=== PATIENT | male | born 1985 | race African-American/Black ===

== ENCOUNTER 2017-01-25 02:00 | Emergency (ER) | payer SELFPAY ==
[~2017-01-25] VITALS: Ht 170.2 cm; Wt 77.1 kg
--- NOTE | 2017-01-25 02:10 | NUR ---
To bed 9 a 31 yo male patient bbra from station, patient verbalized "i used some bad drugs". Patient noted with psych history. Alert and responsive. VSS. nondiaphoretic. nad noted. gowned. safety and comfort measures in place. Dr Ferrell at bedside for eval.
[2017-01-25] MEDS ORDERED: OLANZAPINE 5 MG TABLET ONE (02:21)
--- NOTE | 2017-01-25 02:25 | NUR ---
medicated patient as ordered by Dr Ferrell.
[2017-01-25] MEDS ORDERED: OLANZAPINE 5 MG/TAB.RAPDIS PO ONE (02:30)
--- NOTE | 2017-01-25 04:48 | NUR ---
patient is sleeping comfortably at this time. nad noted. vss.
--- NOTE | 2017-01-25 06:23 | NUR ---
Patient discharged in stable condition. Given information about resources for homeless. written and verbal after care instructions given. Patient verbalizes understanding of instruction. Patient discharged with crutches, ambulating and johana well use of crutches. No further complaints.
[2017-01-25 06:26] VITALS: BP 131/84
== END 2017-01-25 06:27 | disposition home or self-care (01) ==
LOC: ER 02:04
DX: F20.9 Schizophrenia, unspecified (principal); F31.9 Bipolar disorder, unspecified; R79.89 Other specified abnormal findings of blood chemistry; F19.10 Other psychoactive substance abuse, uncomplicated; Z91.14 Patient's other noncompliance with medication regimen
CPT/HCPCS: 82962-TC; A4606; Z7610

== ENCOUNTER 2018-12-20 23:32 | Emergency (ER) | payer OTHER ==
[~2018-12-20] VITALS: Ht 170.2 cm; Wt 73.0 kg
[2018-12-21 00:28] VITALS: BP 110/71
--- NOTE | 2018-12-21 01:11 | NUR ---
PATIENT NOT IN THE WAITING ROOM.
--- NOTE | 2018-12-21 02:14 | NUR ---
PATIENT NOT IN THE WAITING ROOM.
--- NOTE | 2018-12-21 02:49 | NUR ---
PATIENT NOT IN THE WAITING ROOM.
== END 2018-12-21 02:50 | disposition left against medical advice (07) ==
LOC: ER 23:36
DX: F20.9 Schizophrenia, unspecified (principal); F31.9 Bipolar disorder, unspecified; Z53.21 Procedure and treatment not carried out due to patient leaving prior to being seen by health care provider

== ENCOUNTER 2019-01-05 02:07 | Emergency (ER) | payer OTHER ==
[~2019-01-05] VITALS: Ht 177.8 cm; Wt 72.6 kg
--- NOTE | 2019-01-05 02:30 | NUR ---
CHERIE. TO ER BED 11. AAOX4. NO RESP DISTRESS NOTED, BREATHING EVEN AND UNLABORED. AMBULATORY. PT CRYING. DOESN NOT WANT TO TALK AT TIME BEING AND WANTS SOME MOMENT. PER TRIAGE PT CAME IN FOR FEELING THAT HE IS OUT OF PLACE. PT WAS FROM HIS BELONGING AND CLOTHING FOR SAFETY W/ SITTER AT BEDSIDE. AWAITING MD FOR EVAL.
[2019-01-05] MEDS ORDERED: OLANZAPINE 5 MG/TAB.RAPDIS ONE (03:05)
--- NOTE | 2019-01-05 03:06 | NUR ---
WENT WITH AT BEDSIDE FOR PT EVAL. PT STATES THAT HE HAS BEEN DOING DRUG FOR YEARS AND THE HE IS HURTING HIMSELF WITH HIS DRUG USE. PT ADMIT TO HALLUCINATIONS, HAVE NOT BEEN TAKING HIS MEDS. PT DENIES SI AND HI. ORDERS RECEVEIVED NIOTED AND CARRIEDOUT
[2019-01-05] MEDS ORDERED: OLANZAPINE 5 MG TABLET PO ONE (03:30)
--- NOTE | 2019-01-05 05:43 | NUR ---
Patient discharged to home in stable condition. Written and verbal after care instructions given. Patient verbalizes understanding of instruction. PT ambulatory with a steady gait. Pt verbalize he's feeling better. Pt provided with homeless resources, provided with food. homeless waiver signed by Pt. Pt will be at waiting for social worker clinical in am.
[2019-01-05 05:52] VITALS: BP 106/71
== END 2019-01-05 05:54 | disposition home or self-care (01) ==
LOC: ER 02:09
DX: F15.10 Other stimulant abuse, uncomplicated (principal); F20.9 Schizophrenia, unspecified; F32.9 Major depressive disorder, single episode, unspecified; Z59.0 Homelessness

== ENCOUNTER 2019-07-16 11:56 | Emergency (ER) | payer OTHER ==
[~2019-07-16] VITALS: Ht 177.8 cm; Wt 68.0 kg
[2019-07-16 11:56] VITALS: BP 125/81
== END 2019-07-16 12:37 | disposition home or self-care (01) ==
LOC: ER 11:58
DX: F20.9 Schizophrenia, unspecified (principal); F31.9 Bipolar disorder, unspecified; Z59.0 Homelessness

== ENCOUNTER → 2019-08-23 | Emergency (ER) | payer OTHER ==
[~2019-08-23] VITALS: Ht 177.8 cm; Wt 63.5 kg
[~2019-08-23] MED LIST: OLANZAPINE 5 MG TABLET PO ONE; OLANZAPINE 5 MG/TAB.RAPDIS ONE; OLANZAPINE 5 MG/TAB.RAPDIS PO ONE
--- NOTE | 2019-08-23 02:18 | NUR ---
PT CAME TO ER BED 10 C/O SI PLANS TO OVERDOSE ON PILLS. PATIENT DENIES HI. AAOX4. NO SOB. BREATHING EVENLY AND UNLABORED ON ROOM AIR. CONNECTED TO MONITOR. CLOTHING AND BELONGINGS REMOVED AND PLACED INTO A LOCKER. PATIENT IS CHANGED INTO A GOWN. SITTER AT BEDSIDE.
[2019-08-23 02:20] VITALS: BP 137/87
[2019-08-23 04:02] LABS: BASOPHILS % (AUTO) 0.7 % (0.0-2.0); EOSINOPHILS % (AUTO) 8.7 % (0.0-6.0); HEMOGLOBIN 14.5 g/dL (13.5-17.5); MONOCYTES # (AUTO) 0.4 /CMM (0.1-1.30); NEUTROPHILS # (AUTO) 2.7 /CMM (1.8-8.9)
[2019-08-23 04:04] LABS: HEMATOCRIT 43 % (39-51); LYMPHOCYTES # (AUTO) 1.5 /CMM (0.8-4.8); LYMPHOCYTES % (AUTO) 29.8 % (20.0-44.0); MEAN CORPUSCULAR HGB CONC 34 g/dl (31.0-36.0); MEAN CORPUSCULAR VOLUME 89 fL (80-96); MONOCYTES % (AUTO) 8.1 % (2.0-12.0); NEUTROPHILS % (AUTO) 52.7 % (43.0-81.0); PLATELET COUNT (AUTO) 278 /CMM (150-450); RED BLOOD CELL COUNT(AUTO) 4.87 MIL/uL (4.5-6.0); WHITE BLOOD COUNT (AUTO) 5.1 K/uL (4.3-11.0)
[2019-08-23 04:20] LABS: ALANINE AMINOTRANSFERASE 27 U/L (12-78); ALBUMIN 3.8 g/dL (3.4-5.0); ALKALINE PHOSPHATASE 68 U/L (46-116); ASPARTATE AMINOTRANSFERASE 23 U/L (15-37); BILIRUBIN,DIRECT 0.2 mg/dL (0.0-0.2); CARBON DIOXIDE 30 mmol/L (21-32); CHLORIDE 105 mmol/L (98-107); GLUCOSE 98 mg/dL (74-106); POTASSIUM 4.2 mmol/L (3.5-5.1); SODIUM SERUM 142 mmol/L (136-145); TOTAL PROTEIN, SERUM 7.1 g/dL (6.4-8.2); UREA NITROGEN, BLOOD 17 mg/dL (7-18)
[2019-08-23 04:22] LABS: ACETAMINOPHEN 0 ug/ml (10-30); ALCOHOL, BLOOD < 3 mg/dL (0-0); SALICYLATE < 0.2 mg/dL (2.8-20.0)
[2019-08-23 10:13] LABS: APPEARANCE,URINE CLEAR (CLEAR); BILIRUBIN,URINE NEGATIVE (NEGATIVE); BLOOD, URINE NEGATIVE Ery/uL (NEGATIVE); COLOR,URINE YELLOW (YELLOW); KETONES,URINE TRACE (NEGATIVE); LEUKOCYTE ESTERASE ,URINE NEGATIVE (NEGATIVE); NITRITE, URINE NEGATIVE (NEGATIVE); PH,URINE 6.5 (5.0-8.0); PROTEIN,URINE NEGATIVE (NEGATIVE); UGLUCOSE NEGATIVE (NEGATIVE)
[2019-08-23 11:31] LABS: BACTERIA,URINE Few /HPF (None Seen); RBC,URINE 0-2 /HPF (0-2); SQUAMOUS EPITHELIAL CELL,UR Few /HPF (None Seen)
--- NOTE | 2019-08-23 11:46 | NUR ---
GRAHAM Note: SW met with the pt at bedside. Pt appeared to be alert and oriented x4. Pt appeared to be in a depressed mood and presented with a distressed affect. Pt appeared to be disheveled and ungroomed. Pt stated that he is suicidal but he does not have a current plan. Pt states he is currently homeless and his toxicology came back positive for amphetamines. SW informed the pt that she is currently working on his placement to [facility]. SW provided the pt with homeless and substance abuse referrals. Pt signed the homeless waiver as well. GRAHAM placed a copy of the resources provided to him in the chart along with his signed homeless waiver.
--- NOTE | 2019-08-23 11:58 | NUR ---
GRAHAM Note: GRAHAM faxed a referral to Rick, director of admissions, from [facility] to the fax number: [phone].
--- NOTE | 2019-08-23 12:17 | NUR ---
GRAHAM Note: GRAHAM faxed the urine lab results to [facility] from [facility] to the fax number: [phone]. She stated that the pt is being considered for the psych unit for [facility] in [place].
--- NOTE | 2019-08-23 13:28 | NUR ---
[facility] ACCEPTED BY DR MCLAIN /CIARAN REPORT TO KAREN [phone] WILL GO TO P-6
--- NOTE | 2019-08-23 13:39 | NUR ---
CALL [facility] CALL THE CAR FOR TRANSPORT. WILL CALL BACK WITH AMBULANCE COMPANY PROVIDER AND ETA. CONFIRMATION NUMBER [id number].
== END | disposition short-term general hospital (02) ==
LOC: ER 01:57
DX: F15.10 Other stimulant abuse, uncomplicated (principal); R45.851 Suicidal ideations; F20.9 Schizophrenia, unspecified; F31.9 Bipolar disorder, unspecified; Z59.0 Homelessness
CPT/HCPCS: 36415; 80048; 80076; 80305; 80307; 80329; 81001; 85025; 99285; G0480; 81000-TC

== ENCOUNTER 2019-10-22 16:26 | Emergency (ER) | payer OTHER ==
[~2019-10-22] VITALS: Ht 167.6 cm; Wt 70.3 kg
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
--- NOTE | 2019-10-22 16:42 | NUR ---
URINE PROVIDED. SENT TO LAB
--- NOTE | 2019-10-22 16:48 | NUR ---
PT REFUSING BLOOD DRAW.
--- NOTE | 2019-10-22 16:52 | NUR ---
S[employer] STANDARDS COACH AT BEDSIDE FOR LAB COLLECTION.
--- NOTE | 2019-10-22 17:02 | NUR ---
UNABLE TO OBTAIN LABS. PT REFUSED.
[2019-10-22 17:07] LABS: APPEARANCE,URINE Slightly Cloudy (CLEAR); BILIRUBIN,URINE SMALL (NEGATIVE); BLOOD, URINE Negative Ery/uL (NEGATIVE); COLOR,URINE Dark (YELLOW); KETONES,URINE Trace (NEGATIVE); LEUKOCYTE ESTERASE ,URINE Negative (NEGATIVE); NITRITE, URINE Negative (NEGATIVE); PH,URINE 6.5 (5.0-8.0); PROTEIN,URINE Trace mg/dl (NEGATIVE); UGLUCOSE Negative (NEGATIVE)
[2019-10-22 17:18] LABS: BACTERIA,URINE Few /HPF (None Seen); RBC,URINE 0-2 /HPF (0-2); SQUAMOUS EPITHELIAL CELL,UR Few /HPF (None Seen); WBC,URINE 0-2 /HPF (0-3)
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
--- NOTE | 2019-10-22 20:05 | NUR ---
CALLED [employer] FOR BLOOD DRAW.
--- NOTE | 2019-10-22 20:22 | NUR ---
BLOOD DRAWN AND SENT TO LAB
[2019-10-22 20:37] LABS: BASOPHILS % (AUTO) 0.6 % (0.0-2.0); EOSINOPHILS % (AUTO) 6.9 % (0.0-6.0); HEMATOCRIT 47 % (39-51); HEMOGLOBIN 15.8 g/dL (13.5-17.5); LYMPHOCYTES # (AUTO) 1.6 /CMM (0.8-4.8); LYMPHOCYTES % (AUTO) 32.4 % (20.0-44.0); MEAN CORPUSCULAR HGB CONC 33 g/dl (31.0-36.0); MEAN CORPUSCULAR VOLUME 89 fL (80-96); MONOCYTES # (AUTO) 0.6 /CMM (0.1-1.30); MONOCYTES % (AUTO) 12.6 % (2.0-12.0); NEUTROPHILS # (AUTO) 2.4 /CMM (1.8-8.9); NEUTROPHILS % (AUTO) 47.5 % (43.0-81.0); PLATELET COUNT (AUTO) 243 /CMM (150-450); RED BLOOD CELL COUNT(AUTO) 5.33 MIL/uL (4.5-6.0); WHITE BLOOD COUNT (AUTO) 5.1 K/uL (4.3-11.0)
[2019-10-22 20:51] LABS: ALANINE AMINOTRANSFERASE 15 U/L (12-78); ALBUMIN 3.4 g/dL (3.4-5.0); ALKALINE PHOSPHATASE 89 U/L (46-116); ASPARTATE AMINOTRANSFERASE 13 U/L (15-37); BILIRUBIN,DIRECT 0.1 mg/dL (0.0-0.2); BILIRUBIN,TOTAL 0.3 mg/dL (0.2-1.0); CALCIUM, SERUM 8.8 mg/dL (8.5-10.1); CARBON DIOXIDE 27 mmol/L (21-32); CHLORIDE 102 mmol/L (98-107); CREATININE 1.1 mg/dL (0.6-1.3); GLUCOSE 104 mg/dL (74-106); SODIUM SERUM 138 mmol/L (136-145); TOTAL PROTEIN, SERUM 6.9 g/dL (6.4-8.2); UREA NITROGEN, BLOOD 9 mg/dL (7-18)
[2019-10-22 21:06] LABS: ACETAMINOPHEN 0 ug/ml (10-30); ALCOHOL, BLOOD < 3 mg/dL (0-0); SALICYLATE 0.7 mg/dL (2.8-20.0)
--- NOTE | 2019-10-22 21:30 | NUR ---
Patient is resting comfortably in bed with eyes closed. Easily aroused. VSS
--- NOTE | 2019-10-22 22:07 | NUR ---
Pt awake, given food. VSS.
--- NOTE | 2019-10-23 00:16 | NUR ---
Patient is resting comfortably in bed with eyes closed. Easily aroused. VSS
--- NOTE | 2019-10-23 00:23 | NUR ---
PER TIM FROM [facility], NO BEDS AVAILABLE AT [facility]. CLINICAL INFORMATION BEING REVIEWED FOR [facility]. WILL FOLLOW UP.
--- NOTE | 2019-10-23 01:00 | NUR ---
TRANSFER INFORMATION: PT ACCEPTED TO [facility] ACCEPTING MD: DR. CONTI/ DR. WINN NUMBER FOR REPORT: [phone] EXT [phone]
--- NOTE | 2019-10-23 01:12 | NUR ---
REPORT GIVEN TO NOA SIMMONS
--- NOTE | 2019-10-23 01:16 | NUR ---
CALLED CALL THE CAR FOR TRANSPORTATION[id number] ETA [phone]
--- NOTE | 2019-10-23 02:53 | NUR ---
[facility] DELAYED 45 MINUTES
--- NOTE | 2019-10-23 03:44 | NUR ---
Delay of 45-60 mins
[2019-10-23 04:26] VITALS: BP 148/87
--- NOTE | 2019-10-23 04:26 | NUR ---
PT RESTING COMFORTABLY IN BED. VSS. NO ACUTE DISTRESS NOTED
--- NOTE | 2019-10-23 05:03 | NUR ---
[facility] DELAYED. ETA 20 MINUTES
--- NOTE | 2019-10-23 05:46 | NUR ---
REPORT GIVEN TO EMS. PT STABLE FOR TRANSFER
== END 2019-10-23 05:48 ==
LOC: ER 16:29
DX: F19.951 Other psychoactive substance use, unspecified with psychoactive substance-induced psychotic disorder with hallucinations (principal); R45.851 Suicidal ideations; F15.10 Other stimulant abuse, uncomplicated; F31.9 Bipolar disorder, unspecified; F20.9 Schizophrenia, unspecified; Z59.0 Homelessness
CPT/HCPCS: 36415; 80048; 80076; 80305; 80307; 80329; 81001; 85025; 99285; G0480; 81000-TC

== ENCOUNTER 2019-11-02 02:50 | Emergency (ER) | payer OTHER ==
[~2019-11-02] VITALS: Ht 177.8 cm; Wt 68.0 kg
[2019-11-02 03:20] VITALS: BP 147/98
--- NOTE | 2019-11-02 03:20 | NUR ---
BIBS FOR C/O "I DON'T FEEL WELL MENTALLY" STATED WILLING TO CHECK IN AT PSYCH UNIT AT [facility]. PT DENIED SI/HI A THIS TIME. PT APPEARS VERY ANXIOUS, AGITATED AND UNCOOPERATIVE. DENIED SI OR HI. PT WAS PROVIDED W. A URINE SPECIMEN CUP BUT HE REFUSED TO PROVIDE SAMPLE AT THIS TIME. PT REMAINED UNDER CLOSE SUPERVISION FOR SAFETY. WILL CONT TO MONITOR ,
--- NOTE | 2019-11-02 03:36 | NUR ---
PT REFUSED GIVING URINE SAMPLE AND BLOOD DRAW. STARTED YELLING AND SCREAMING "I'M NOT LETTING YOU DRAW MY BLOOD" AND REPORTED WILLING TO LEAVE.Patient eloped from facility. ER notified.
== END 2019-11-02 03:36 | disposition left against medical advice (07) ==
LOC: ER 02:52
DX: Z04.6 Encounter for general psychiatric examination, requested by authority (principal)

== ENCOUNTER 2019-11-05 22:19 | Emergency (ER) | payer OTHER ==
--- NOTE | 2019-11-05 22:19 | NUR ---
PT CALLED TO BE TRIAGED. NOT IN WAITING ROOM.
--- NOTE | 2019-11-05 22:30 | NUR ---
PT IN WAITING ROOM YELLING "NURSE" AND BEING UNCOOPERATIVE. PT ASKED TO BE TRIAGED, PT NOT WANTING TO COME INTO TRIAGE ROOM.
--- NOTE | 2019-11-05 22:53 | NUR ---
PT IN WAITING ROOM, NOT WANTING TO BE TRIAGED.
--- NOTE | 2019-11-05 23:10 | NUR ---
PT SLEEPING IN WAITING ROOM. STATED "LEAVE ME ALONE" WHEN CALLED.
--- NOTE | 2019-11-06 01:06 | NUR ---
PT STILL REFUSING TO BE SEEN BY MD. SLEEPING IN WAITING ROOM
== END 2019-11-06 01:07 | disposition left against medical advice (07) ==
LOC: ER 22:24
DX: Z53.21 Procedure and treatment not carried out due to patient leaving prior to being seen by health care provider (principal)